=== PATIENT | female | born 1980 | race Caucasian/White ===

== ENCOUNTER 2021-04-02 16:56 | Outpatient (CLI) | payer BC ==
--- NOTE | 2021-04-03 12:50 | XRAY Report ---
PROCEDURE: Lumbar Spine 2 View INDICATIONS: LOW BACK PAIN TECHNIQUE: 3 views of the lumbar spine were acquired. COMPARISON: None. FINDINGS: Bones: 5 [id number] vertebrae are present. There is trace retrolisthesis of L2 on L3, L3 on L4 . Minimal foraminal narrowing is noted L4-5, minimal disc space narrowing at L5-S1. No vertebral body compression fractures. No suspicious bony lesions. Soft tissues: Overlying bowel gas pattern is normal. No suspicious soft tissue calcifications. IMPRESSION: Minimal early degenerative changes as above. Reviewed by: Jade Byrd MD on 04/03/2021 12:49 PM PDT Approved by: Jade Byrd MD on 04/03/2021 12:49 PM PDT Station ID: [id number]
== END 2021-04-02 16:57 | disposition home or self-care (01) ==
LOC: DI.N 16:56
PROVIDERS: ATTEND Internal Medicine
DX: M43.16 Spondylolisthesis, lumbar region (principal); M48.061 Spinal stenosis, lumbar region without neurogenic claudication; M51.37 Other intervertebral disc degeneration, lumbosacral region